=== PATIENT | male | born 1955 | race Caucasian/White ===

== ENCOUNTER 2017-09-05 07:30 | Day surgery (SDC) | payer BC, MEDICARE ==
[~2017-09-05] VITALS: Ht 175.3 cm; Wt 72.7 kg
[~2017-09-05 07:30] MED LIST: ZANTTAB9
[2017-09-05 07:59] VITALS: BP 138/83; PULSE 83; RESP 17; TEMP 97.5; O2SAT 96
[2017-09-05] MEDS ORDERED: ceFAZolin 2 GM PREMIX 50 ML - implanted port removal IV SCH (08:00)
[2017-09-05] MEDS ORDERED: SODIUM CHLORIDE 0.9% 1000 ML IV SCH (08:00)
[2017-09-05] MEDS ORDERED: ONDA8TAB7 PO (08:52)
[2017-09-05] MEDS ORDERED: PROM6.254 PO (08:53)
[2017-09-05] MEDS ORDERED: OMEP20TA93 PO (08:54)
[2017-09-05] MEDS ORDERED: PRED10 PO (08:55)
[2017-09-05] MEDS ORDERED: PANT40TA3 PO (08:55)
[2017-09-05] MEDS ORDERED: fentaNYL CITRATE 250 MCG/5 ML AMP ONE (08:55)
[2017-09-05] MEDS ORDERED: MIDAZOLAM HCL 2 MG/2 ML VIAL ONE (08:55)
[2017-09-05] MEDS ORDERED: CLON1TAB PO (08:56)
[2017-09-05] MEDS ORDERED: MIRT45TA PO (08:57)
[2017-09-05] MEDS ORDERED: ZOLP10TA3 PO (08:57)
[2017-09-05] MEDS ORDERED: CLAR10CA3 PO (08:58)
[2017-09-05] MEDS ORDERED: CENTRUM PO (08:59)
[2017-09-05] MEDS ORDERED: CHOL100025 CHEW (09:00)
[2017-09-05] MEDS ORDERED: VITA250T3 PO (09:01)
[2017-09-05] MEDS ORDERED: CALC600T5 PO (09:03)
[2017-09-05] MEDS ORDERED: LIDOCAINE 1%/EPINEPHrine 1:100,000 SOLN 20 ML VIAL ONE (09:05)
--- NOTE | 2017-09-05 09:37 | PD.RAD ---
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 See PACS Report for procedural detail/treatment Ricardo Foy MD Sep 05, 2017 09:37
[2017-09-05 09:50] VITALS: BP 136/79; PULSE 82; RESP 20; TEMP 97.9; O2SAT 98
[2017-09-05 10:05] VITALS: BP 116/68; PULSE 80; RESP 20; O2SAT 97
[2017-09-05 10:35] VITALS: BP 120/76; PULSE 78; RESP 18; O2SAT 99
[2017-09-05 11:05] VITALS: BP 135/83; PULSE 87; RESP 20; O2SAT 96
[2017-09-05 11:35] VITALS: BP 151/88; PULSE 83; RESP 20; O2SAT 95
--- NOTE | 2017-09-05 15:45 | RADRPT ---
INDICATIONS: Patient presents with vocal cord cancer in need of port removal that is no longer neede d. CLINICAL DATA: This is the patient's initial encounter. Patient reports that signs and symptoms have been present for > 1 year and indicates a pain score of 0/10. Location: Upper Chest, Laterality: Right MEDICAL/SURGICAL HISTORY: . Vocal cord cancerArthritisCOPD . Metal screws in jawColonoscopy in 2007Knee surgery in 1992 COMPARISON: No prior exams available for comparison. FLUORO TIME (min): IMAGE SERIES: ACCESS SITE: SEDATION TIME (min): 30 CONTRAST (cc): MEDICATION(S): 2 mg midazolam (Versed) IV 200 mcg fentanyl (Sublimaze) IV DEVICE(S): PROCEDURE: 1. Removal of Irasha-e-svuk. 2. Conscious sedation with continuous EKG and oximetry monitoring. The risk, benefits and potential complications of [id number] removal were discussed. Written conse nt was obtained. The patient was placed supine. The chest wall was prepped in sterile fashion. Full sterile techniqu e was used, including cap, mask, sterile gloves and gown, and a large sterile sheet. Hand hygiene an d 2% chlorhexidine and/or Betadine/alcohol prep was utilized per protocol for cutaneous antisepsis. The skin and subcutaneous tissues were infiltrated with local anesthetic solution. A small incision w as made, the subcutaneous pocket was opened. The port was dissected from the subcutaneous tissues and easily removed in one piece. The pocket incision was closed with subcuticular Vicryl suture. Steri -Strips were applied. Conscious sedation was performed with the prescribed dosages and duration as above in the presence of an independent trained radiology nurse to assist in the monitoring of the patient. EKG and oximetry remained stable throughout the procedure. The patient tolerated the procedure well and there were no complications. The patient was sent to post anesthesia recovery in stable condition. CONCLUSION: 1. Uncomplicated port removal as above. Electronically signed by: Ricardo Foy MD 09/05/2017 3:44 PM EDT
== END 2017-09-05 12:04 | disposition home or self-care (01) ==
LOC: HROP 07:30 → HRIP 07:31 → HROP 12:04
PROVIDERS: ATTEND Internal Medicine
DX: Z45.2 Encounter for adjustment and management of vascular access device (principal); C32.0 Malignant neoplasm of glottis
CPT/HCPCS: 36590; 99152; 99153; J0690; J2250; J3010; J7030